=== PATIENT | male | born 1965 | race Two or more races ===

== ENCOUNTER 2018-09-06 18:42 | Emergency (ER) | payer MEDICARE, OTHER ==
[~2018-09-06] VITALS: Ht 188 cm; Wt 111.6 kg
[2018-09-06 19:24] LABS: Basophils # (auto) 0 uL; Basophils % (auto) 0.4 % (0.0-2.0); Eosinophils # (auto) 0.2 uL; Eosinophils % (auto) 2.3 % (0.0-7.0); Hemoglobin 14.1 g/dL (13.5-17.5); Lymphocytes % (auto) 25.7 % (10.0-50.0); Mean Corpuscular Hemoglobin 30.7 pg (28.0-32.0); Mean Corpuscular Hgb Conc. 33.5 g/dL (32.0-36.0); Mean Corpuscular Volume 91.6 fL (80.0-100.0); Monocytes # (auto) 0.8 uL; Monocytes % (auto) 9.8 % (0.0-12.0); Neutrophils # (auto) 4.8 uL; Neutrophils % (auto) 61.8 % (37.0-80.0); Platelet Count (auto) 217 10^3/uL (140-450); Red Blood Cells 4.58 10^6/uL (4.5-5.90); Red Cell Distribution Width 14.2 % (11.8-14.3); White Blood Cell 7.8 10^3/uL (4.4-10.8)
[2018-09-06 19:25] LABS: Chloride 110 mmol/L (98-107); Potassium 3.9 mmol/L (3.5-5.1); Sodium 142 mmol/L (136-145)
[2018-09-06 19:29] LABS: Albumin 3.5 g/dL (3.4-5.0); Anion Gap 8 (5-15); Blood Urea Nitrogen 27 mg/dL (7-18); Carbon Dioxide 24 mmol/L (21-32); Glucose 97 mg/dL (74-106)
[2018-09-06 19:32] LABS: Alanine Aminotransferase 20 U/L (16-61); Aspartate Aminotransferase 15 U/L (15-37); BUN/Creatinine Ratio 19.1; GFR African American 67 mL/min; GFR Non-African American 55 mL/min
[2018-09-06 19:35] LABS: Alkaline Phosphatase 112 U/L (45-117); Bilirubin, Total 0.2 mg/dL (0.2-1.0); Total Protein 7.4 g/dL (6.4-8.2)
[2018-09-06 22:40] LABS: Urine Bacteria NONE SEEN /hpf (None Seen); Urine Blood Negative /uL (Negative); Urine Specific Gravity 1.026 (1.001-1.035); Urine WBC 7 /hpf (0 - 3)
[2018-09-06 22:41] LABS: Alcohol, Urine < 3.0 mg/dL (0-5); Amphetamine Screen, Urine NEGATIVE (NEGATIVE); Barbiturate Scree,Urine NEGATIVE (NEGATIVE); Benzodiazephine Screen, Urine NEGATIVE (NEGATIVE); Cannabinoid Screen, Urine NEGATIVE (NEGATIVE); Cocaine Screen, Urine NEGATIVE (NEGATIVE); Opiate Scree,Urine NEGATIVE (NEGATIVE); Phencyclidine Screen, Urine NEGATIVE (NEGATIVE)
[2018-09-07] MEDS ORDERED: LORazepam 0.5 MG TAB PO ONE
[2018-09-07] MEDS ORDERED: VENTOLIN IN PRN (02:30)
[2018-09-07] MEDS ORDERED: TEMAZEPAM 15 MG CAP PO ONE (03:15)
[2018-09-07] MEDS ORDERED: OLANZapine 5 MG TAB PO ONE (03:15)
[2018-09-07] MEDS ORDERED: FUROSEMIDE 40 MG TAB PO SCH (07:00)
[2018-09-07] MEDS: COMBIVENT IN SCH ×3 (08:02→18:37)
[2018-09-07] MEDS ORDERED: IBUPROFEN 400 MG TAB PO PRN (08:30)
[2018-09-07] MEDS ORDERED: CALCITONIN 200 UNIT/SPRAY NASAL SCH ×3 (10:00→10:46)
[2018-09-07] MEDS ORDERED: DABIGATRAN 75 MG CAP PO SCH (10:00)
[2018-09-07] MEDS ORDERED: POLYETHYLENE GLYCOL 17 GM PWDR PO SCH (10:00)
[2018-09-07] MEDS ORDERED: FORMOTEROL IN SCH (10:00)
[2018-09-07] MEDS ORDERED: DOCUSATE CALCIUM 240 MG CAP PO SCH (10:00)
[2018-09-07] MEDS ORDERED: BUDESONIDE IN SCH (10:00)
[2018-09-07] MEDS ORDERED: MONTELUKAST SODIUM 10 MG TAB PO SCH (10:00)
[2018-09-07] MEDS ORDERED: POTASSIUM CHLORIDE 8 MEQ TAB PO SCH (10:00)
[2018-09-07] MEDS ORDERED: FEXOFENADINE HCL 60 MG TAB PO SCH (10:00)
[2018-09-07] MEDS ORDERED: LORazepam 0.5 MG TAB PO SCH (10:00)
[2018-09-07] MEDS ORDERED: CALCIUM W/VIT D (600MG/400IU) TAB PO SCH (10:00)
[2018-09-07 21:58] VITALS: BP 120/63
[2018-09-07] MEDS ORDERED: CLOZAPINE 100 MG PO SCH (22:00)
[2018-09-07] MEDS ORDERED: METOPROLOL TARTRATE 25 MG TAB PO SCH (22:00)
[2018-09-07] MEDS ORDERED: IMIPRAMINE 25 MG PO SCH (22:00)
== END 2018-09-07 22:25 | disposition short-term general hospital (02) ==
LOC: ER 18:42
DX: F23 Brief psychotic disorder (principal); F32.9 Major depressive disorder, single episode, unspecified; R45.851 Suicidal ideations; F41.9 Anxiety disorder, unspecified; I10 Essential (primary) hypertension; J45.909 Unspecified asthma, uncomplicated
CPT/HCPCS: 36415; 80053; 80307; 81001; 85025